=== PATIENT | female | born 1990 | race American Indian/Alaskan Native ===

== ENCOUNTER 2016-12-19 12:59 | Outpatient (CLI) | payer MEDICAID ==
[2016-12-19 13:12] VITALS: BP 121/72
--- NOTE | 2016-12-19 14:08 | Ultrasound Report ---
BIOPHYSICAL PROFILE: INDICATION: Decreased movement. COMPARISON: None similar. TECHNIQUE: Transabdominal ultrasound with Doppler interrogation. 0 - breathing movements 2 - movements 2 - posture and tone 2 - Qualitative amniotic fluid volume 6 - TOTAL SCORE OF POSSIBLE 8 Heart Rate (bpm) 133
--- NOTE | 2016-12-19 14:09 | Ultrasound Report ---
OB LIMITED INDICATION: Decreased movement. COMPARISON: None similar at this institution. TECHNIQUE: Transabdominal grayscale ultrasound with Doppler interrogation. Gestation: Valentin Position: Cephalic Amniotic Fluid: WNL (7-24 cm) PADMINI = 14.9 cm Heart Rate: 146 BPM
== END 2016-12-19 15:01 | disposition home or self-care (01) ==
LOC: TRG 12:59
PROVIDERS: ATTEND Obstetrics & Gynecology
DX: O36.8130 Decreased fetal movements, third trimester, not applicable or unspecified (principal); O47.1 False labor at or after 37 completed weeks of gestation; Z3A.38 38 weeks gestation of pregnancy
CPT/HCPCS: 59025; 76815; 76819

== ENCOUNTER 2016-12-22 19:46 | Inpatient (IN) | payer MEDICAID ==
[2016-12-22] MEDS ORDERED: MINERAL OIL PO PRN ×2 (21:12→22:12)
[2016-12-22] MEDS ORDERED: BRETHINE SUB-Q PRN ×2 (21:12→22:12)
[2016-12-22] MEDS ORDERED: XYLOCAINE 2% INFILTRATI ONE ×2 (21:12→22:12)
[2016-12-22] MEDS ORDERED: BRETHINE IVP PRN ×2 (21:12→22:12)
[2016-12-22] MEDS ORDERED: SUBLIMAZE IV PRN (21:12)
[2016-12-22] MEDS ORDERED: ePHEDrine SULFATE IV PRN ×2 (21:12→22:12)
[2016-12-22] MEDS ORDERED: ZOFRAN IV PRN (21:12)
[2016-12-22] MEDS ORDERED: LACTATED RINGERS 1,000 ML IV SCH (22:00)
[2016-12-22] MEDS ORDERED: PITOCin/NS 20 UNIT/1000ML DRIP 20 UNITS/1,000 ML BAG IV SCH ×2 (22:00→23:00)
[2016-12-22 22:06] LABS: Hemoglobin 11.4 gm/dl (10.1-14.3); Mean Corpuscular HGB Conc 34 % (30-34); Mean Corpuscular Hemoglobin 33 pg (28-32); Mean Corpuscular Volume 97 fl (79-97); Platelet Count 333 K/mm3 (140-440); Red Blood Count 3.42 M/mm3 (3.65-5.03); Red Cell Distribution Width 13.3 % (13.2-15.2); White Blood Count 8.7 K/mm3 (4.5-11.0)
--- NOTE | 2016-12-22 22:12 | History and Physical Report ---
History of Present Illness Date of examination: 12/22/16 Date of admission: 12/22/16 21:08 Chief complaint: Rupture of Membranes at 7:30 PM today History of present illness: 26-year-old at 38+6 weeks presents with above complaints and issues, she is a [facility] patient. course has been unremarkable, she is GBS negative Past History Past Medical History: no pertinent history Past Surgical History: no surgical history STAFF REPORTER History: denies: chlamydia, gonorrhea, hepatitis B, hepatitis C, herpes, HIV , syphilis, trichomonas Social history: , full code. denies: smoking, alcohol abuse, prescription drug abuse, IV drug use - Obstetrical History Expected Date of Delivery: 12/30/16 Actual Gestation: 39 Week(s) 0 Day(s) : 1 Medications and Allergies Allergies Allergy/AdvReac Type Severity Reaction Status Date / Time No Known Allergies Allergy Verified 12/22/16 21:17 Home Medications Medication Instructions Recorded Confirmed Last Taken Type No Known Home Medications [No 12/22/16 12/22/16 Unknown History Reported Home Medications] Active Meds: Active Medications Fentanyl (Sublimaze) 100 mcg IV Q2H PRN PRN Reason: Labor Pain Lactated Ringer's (Lactated Ringers) 1,000 mls @ 125 mls/hr IV DIRECT MUNA Oxytocin/Sodium Chloride (Pitocin/Ns 20 Unit/1000ml Drip) 20 units in 1,000 mls @ 125 mls/hr IV DIRECT MUNA Mineral Oil (Mineral Oil) 30 ml PO QHS PRN PRN Reason: Constipation Ondansetron HCl (Zofran) 4 mg IV Q8H PRN PRN Reason: Nausea And Vomiting Review of Systems Constitutional: no fever, no chills Cardiovascular: no chest pain, no orthopnea, no palpitations, no syncope, no lightheadedness, no shortness of breath, no dyspnea on exertion, no high blood pressure Respiratory: no cough, no shortness of breath, no dyspnea on exertion Gastrointestinal: no abdominal pain, no nausea, no vomiting, no diarrhea Genitourinary: leakage of fluid, no vaginal bleeding, no vaginal discharge, no contractions - Vital Signs Vital signs: Vital Signs Temp Pulse Resp BP 98.7 F 108 H 18 131/87 12/22/16 20:01 12/22/16 20:01 12/22/16 20:01 12/22/16 20:01 Temp Pulse Resp BP Pulse Ox 98.7 F 86 18 131/87 99 12/22/16 20:01 12/22/16 22:03 12/22/16 20:01 12/22/16 20:01 12/22/16 22:03 - Physical Exam Cardiovascular: Regular rate, Normal S1, Normal S2 Lungs: Positive: Clear to auscultation, Normal air movement Abdomen: Positive: normal appearance, soft. Negative: distention, tenderness, guarding, rigidity Genitourinary (Female): Positive: normal external genitalia Uterus: Positive: enlarged (EFW ~ 3600). Negative: tender Adnexa: both: normal Extremities: Positive: normal - Obstetrical FHR: category 1 Cervical Dilatation: 1 (per RN exam) Results Result Diagrams: 12/22/16 21:16 Abnormal lab results 12/22/16 Range/Units 21:16 RBC 3.42 L (3.65-5.03) M/mm3 MCH 33 H (28-32) pg All other labs normal. Assessment and Plan A: 26 y/o at 38+6 wks is s/p SROM ~ 3 hrs ago -Cat 1 tracing P: -Admit -Routine labs -Declined epidural for now -Expectant management -Anticipate normal vaginal delivery - Patient Problems (1) 38 weeks gestation of Current Visit: Yes Status: Acute (2) Spontaneous rupture of amniotic membranes Current Visit: Yes Status: Acute
[2016-12-23] MEDS: LACTATED RINGERS 1,000 ML IV SCH ×4 (02:15→12:56)
[2016-12-23] MEDS ORDERED: PITOCin/NS 30 UNIT/500ML 30 UNITS/500 ML BAG IV SCH (05:00)
[2016-12-23] MEDS: STADOL IV PRN ×2 (05:10→07:14)
[2016-12-23] MEDS ORDERED: ePHEDrine SULFATE ONE (08:07)
--- NOTE | 2016-12-23 09:18 | Anesthesia Consultation ---
Anesthesia Consult and Med Hx Date of service: 12/23/16 - Airway Anesthetic Teeth Evaluation: Good ROM Head & Neck: Adequate Mental/Hyoid Distance: Adequate Mallampati Class: Class II Intubation Access Assessment: Good - Pulmonary Exam CTA: Yes - Cardiac Exam Cardiac Exam: No Murmur - Pre-Operative Health Status ASA Pre-Surgery Classification: ASA2 Proposed Anesthetic Plan: Epidural - Pulmonary Hx Asthma: No COPD: No Hx Pneumonia: No - Cardiovascular System Hx Hypertension: No - Central Nervous System Hx Seizures: No Hx Psychiatric Problems: No - Endocrine Hx Renal Disease: No Hx End Stage Renal Disease: No Hx Hypothyroidism: No Hx Hyperthyroidism: No - Hematic Hx Anemia: No Hx Sickle Cell Disease: No - Other Systems Hx Alcohol Use: Yes (drinks wine 1-2x/month)
[2016-12-23] MEDS ORDERED: NARCAN 2 MG/2 ML IV PRN (09:19)
[2016-12-23] MEDS ORDERED: ePHEDrine SULFATE IV PRN (09:19)
--- NOTE | 2016-12-23 09:29 | Event Note ---
Date: 12/23/16 S: My water broke last night, its still coming out O: Epidural placed /, Pit on 4 mu, CAT I tracing A: 39 weeks today, Active labor, SROM on 12/22/2016 P: Continue pitocin induction
[2016-12-23] MEDS ORDERED: fentaNYL-BUPIV 2 MCG/ML-0.125% 200 MCG/100 ML BAG EPIDURAL SCH (10:00)
--- NOTE | 2016-12-23 14:06 | Event Note ---
Date: 12/23/16 O: VE /-1, Pit at 20 mu, CAT I tracing A: IUP @ 38 weeks with SROM P; Expect
[2016-12-23] MEDS ORDERED: METHERGINE IM ONE (18:11)
[2016-12-23] MEDS ORDERED: PHENERGAN PO PRN (18:51)
[2016-12-23] MEDS ORDERED: TUCKS PAD TP PRN (18:51)
[2016-12-23] MEDS ORDERED: DULCOLAX PR PRN (18:51)
[2016-12-23] MEDS ORDERED: BENADRYL PO PRN (18:51)
[2016-12-23] MEDS ORDERED: LANSINOH TP PRN (18:51)
[2016-12-23] MEDS ORDERED: TYLENOL PO PRN (18:51)
--- NOTE | 2016-12-23 18:51 | Procedure Note ---
OB Delivery Note - Delivery Date of Delivery: 12/23/16 Surgeon: LALA MIRANDA - Vaginal Delivery presentation: vertex Delivery position: OA Intrapartum events: none Delivery induction: none Delivery augmentation: pitocin Delivery monitor: external FHT, external uterine Route of delivery: Delivery placenta: spontaneous Delivery cord: 3 umbilical vessels Episiotomy: none Delivery laceration: none Anesthesia: epidural Delivery comments: of a viable female 6#-11 on 12/23/2016 @ 7507 over an intact perineum. Tight nuchal cord reduced at delivery. 8/9. EBL 100cc. FF @ u-2, lochia small. MOther and baby doing well. - Infant B at 1 minute: 8 at 5 minutes: 9 Infant Gender: Female (6# 11 oz)
[2016-12-23] MEDS ORDERED: SODIUM CHLORIDE FLUSH SYRINGE 10 ML IV NR (19:00)
[2016-12-23] MEDS: NORCO 5/325 PO PRN (20:40)
[2016-12-23] MEDS: MOTRIN PO SCH (20:40)
[2016-12-24] MEDS: NORCO 5/325 PO PRN ×2 (05:14→21:50)
[2016-12-24] MEDS: MOTRIN PO SCH ×3 (05:14→18:09)
[2016-12-24 07:09] LABS: Hematocrit 24.8 % (30.3-42.9); Hemoglobin 8.6 gm/dl (10.1-14.3)
--- NOTE | 2016-12-24 11:10 | Progress Note ---
Assessment and Plan PPD#1 s/p -stable P: -Continue routine care -Anticipate discharge in 24-48 hours - Patient Problems (1) (normal spontaneous vaginal delivery) Current Visit: Yes Status: Acute (2) 38 weeks gestation of Current Visit: Yes Status: Acute (3) Spontaneous rupture of amniotic membranes Current Visit: Yes Status: Acute Subjective - Subjective Date of service: 12/24/16 Principal diagnosis: PPD# 1 Interval history: Patient seen and examined, stable doing well Patient reports: appetite normal, voiding normally, pain well controlled, flatus , ambulating normally, no dizzy ambulation : doing well Objective - Vital Signs Latest vital signs: Vital Signs Temp Pulse Pulse Resp BP BP Pulse Ox 12/24/16 09:45 98.4 F 86 18 134/76 12/24/16 05:00 98.6 F 76 16 122/82 12/24/16 00:30 98.6 F 68 16 128/87 12/23/16 20:30 98.6 F 77 16 129/93 12/23/16 18:37 116 H 145/68 12/23/16 18:00 98.6 F 18 12/23/16 16:59 98.6 F 18 12/23/16 14:54 95 H 100 12/23/16 14:49 98.5 F 91 H 18 100 12/23/16 14:44 98 H 100 12/23/16 14:39 103 H 98 12/23/16 14:38 103 H 152/68 12/23/16 14:34 110 H 99 12/23/16 14:29 93 H 100 12/23/16 14:24 102 H 100 12/23/16 14:19 96 H 99 12/23/16 14:14 82 100 12/23/16 14:09 109 H 100 12/23/16 14:08 90 123/81 12/23/16 14:04 98 H 100 12/23/16 13:59 90 100 12/23/16 13:54 89 100 12/23/16 13:49 97 H 100 12/23/16 13:44 100 H 100 12/23/16 13:39 97 H 100 12/23/16 13:38 96 H 118/79 12/23/16 13:34 94 H 100 12/23/16 13:29 99 H 99 12/23/16 13:24 93 H 99 12/23/16 13:19 100 H 99 12/23/16 13:14 98 H 99 12/23/16 13:09 100 H 99 12/23/16 13:07 93 H 122/66 12/23/16 13:04 75 100 12/23/16 12:59 78 99 12/23/16 12:54 105 H 99 12/23/16 12:49 87 100 12/23/16 12:45 98 F 18 12/23/16 12:44 90 99 12/23/16 12:39 70 85 12/23/16 12:38 67 81 L 12/23/16 12:34 82 99 12/23/16 12:29 79 98 12/23/16 12:24 83 98 12/23/16 12:19 81 99 12/23/16 12:14 89 99 12/23/16 12:09 81 100 12/23/16 12:08 87 107/69 12/23/16 12:03 72 100 12/23/16 11:58 85 99 12/23/16 11:53 90 100 12/23/16 11:48 94 H 100 12/23/16 11:43 89 100 12/23/16 11:38 85 100 12/23/16 11:36 87 112/62 12/23/16 11:33 84 100 12/23/16 11:28 91 H 100 12/23/16 11:23 79 100 12/23/16 11:21 75 100/56 12/23/16 11:18 77 100 12/23/16 11:13 77 100 Intake and Output 12/23/16 12/24/16 12/24/16 22:59 06:59 14:59 Intake Total 900 1100 Output Total 600 1000 Balance 300 100 Intake: IV 900 Lactated Ringers 1,000 ml 600 @ 125 mls/hr IV DIRECT MUNA Rx#:[id number] PITOCin/NS 30 UNIT/500ML 300 30 units In 500 ml @ 2 mls/hr IV TITR MUNA Rx#: [id number] Oral 400 Intake, Free Water 700 Output: Urine 600 1000 Indwelling Catheter 600 Void 1000 Other: Total, Intake Amount 400 Total, Output Amount 600 600 # Voids Void 1 Estimated Blood Loss 100 - Exam Abdomen: Present: normal appearance, soft. Absent: distention, tenderness, guarding, rigidity Uterus: Present: fundal height below umbilicus. Absent: tenderness Extremities: Present: normal - Labs Labs: Abnormal lab results 12/24/16 Range/Units 06:40 Hgb 8.6 L (10.1-14.3) gm/dl Hct 24.8 L D (30.3-42.9) %
--- NOTE | 2016-12-24 11:11 | Discharge Summary ---
Providers - Providers Date of Admission: 12/22/16 21:08 Date of discharge: 12/25/16 Attending physician: ETHAN VELÁSQUEZ MD Primary care physician: ETHAN VELÁSQUEZ MD Hospitalization Reason for admission: active labor, rupture of membranes, IUP at term Delivery: Episiotomy: none Laceration: none complications: none Discharge diagnosis: IUP at term delivered [place] baby: female Hospital course: Uncomplicated hospital course Condition at discharge: Good Disposition: DISCHARGED TO HOME OR SELFCARE - Discharge Diagnoses (1) (normal spontaneous vaginal delivery) Status: Acute (2) 38 weeks gestation of Status: Acute (3) Spontaneous rupture of amniotic membranes Status: Acute Plan - Discharge Medications Prescriptions: HYDROcodone/APAP 5-325 [[place] 5/325] 1 each PO Q6HR PRN #10 tablet PRN Reason: Pain Ibuprofen [Motrin 600 MG tab] 600 mg PO Q8H PRN #30 tablet PRN Reason: Pain Multivitamin with Iron [Multivitamins with Iron] 1 each PO DAILY #30 tablet - Provider Discharge Summary Activity: no sex for 6 weeks, no heavy lifting 4 weeks, no strenuous exercise Diet: routine Additional instructions: [] Smoking cessation referral if applicable(refer to patient education folder for contact #) [] Refer to [facility]'s [facility] Booklet Call your doctor immediately for: * Fever > 100.5 * Heavy vaginal bleeding ( >1 pad per hour) * Severe persistent headache * Shortness of breath * Reddened, hot, painful area to leg or breast * Drainage or odor from incision. * Keep incision clean and dry at all times and follow doctor's instructions regarding bathing/showering - Follow up plan Follow up: ETHAN GOLDBERG MD [Primary Care Provider] - 6 Weeks
[2016-12-25] MEDS ORDERED: BOOSTRIX IM ONE (06:00)
[2016-12-25] MEDS: MOTRIN PO SCH ×2 (08:30)
[2016-12-25 09:42] VITALS: BP 140/79
== END 2016-12-25 14:31 | disposition home or self-care (01) | DRG 775 ==
LOC: TRG 19:46 → LD 21:08 → OB 12-23 20:19
PROVIDERS: ADMIT Obstetrics & Gynecology; ATTEND Obstetrics & Gynecology
PROC: 10E0XZZ Delivery of Products of Conception, External Approach (ICD-10-PCS; principal; 2016-12-23)
PROC: 3E0R3CZ (ICD-10-PCS; 2016-12-23)
PROC: 00HU33Z Insertion of Infusion Device into Spinal Canal, Percutaneous Approach (ICD-10-PCS; 2016-12-23)
DX: O42.92 Full-term premature rupture of membranes, unspecified as to length of time between rupture and onset of labor (principal); Z3A.38 38 weeks gestation of pregnancy; O69.1XX0 Labor and delivery complicated by cord around neck, with compression, not applicable or unspecified; Z37.0 Single live birth
CPT/HCPCS: 36415; 85014; 85018; 85027; 86850; 86900; 86901; 90471; 90715; J0595; J2210; J2405; J2590; J3010; J7120; Q0169